=== PATIENT | female | born 1980 | race Caucasian/White ===

== ENCOUNTER 2023-12-29 09:58 | Emergency (ER) | payer MEDICAID ==
[2023-12-29] MEDS ORDERED: Amoxicillin 500 MG Cap ONE (11:00)
== END 2023-12-29 11:09 | disposition home or self-care (01) ==
LOC: LB.ED 09:58
DX: J03.00 Acute streptococcal tonsillitis, unspecified (principal); E66.9 Obesity, unspecified; Z88.5 Allergy status to narcotic agent; Z88.2 Allergy status to sulfonamides; Z68.31 Body mass index [BMI] 31.0-31.9, adult
CPT/HCPCS: 87651-QW; 99283; A9270-GY